=== PATIENT | male | born 1975 | race African-American/Black ===

== ENCOUNTER 2016-12-12 17:46 | Emergency (ER) | payer SELFPAY ==
[~2016-12-12] VITALS: Ht 185.4 cm; Wt 54.0 kg
[~2016-12-12 17:46] MED LIST: IBUPROFEN600 MG PO; MOBIC15 MG PO; NOHOMEMEDS; ZOFRAN8 MG PO
[2016-12-12] MEDS ORDERED: MOTRIN800 MG PO (19:08)
[2016-12-12 19:44] VITALS: BP 138/82
== END 2016-12-12 19:45 | disposition home or self-care (01) ==
LOC: EME 17:46
DX: S09.90XA Unspecified injury of head, initial encounter (principal); S00.81XA Abrasion of other part of head, initial encounter; W10.1XXA Fall (on)(from) sidewalk curb, initial encounter; F17.200 Nicotine dependence, unspecified, uncomplicated
CPT/HCPCS: 70486; 99281; 99284